=== PATIENT | female | born 1970 | race Caucasian/White ===

== ENCOUNTER 2016-06-20 22:20 | Emergency (ER) | payer OTHER ==
--- NOTE | 2016-06-20 22:46 | ED NURSING NOTES ---
Clinical Report - Nurses [facility] [address] [place] [address] 06/20/2016 22:21 [id number] TRI[facility] Triage time 22:27 Jun 20 2016. Acuity: LEVEL 4. Chief Complaint: Location of symptoms- (Starting right hip radiating down to ankle, she doesnt know what happened, this has been going on for 3 weeks). 22:33 06/20/16. SEPSIS SCREEN: Sepsis Screen. Negative (no infection suspected/documented). DEIDRA COMA SCORE: Deidra Coma Scale: 15- eyes open spontaneously (4); best verbal response- oriented x 4 (5); best motor response- obeys commands (6). --22:33 Mimi Rocha R.N. 22:27 06/20/16. BP: 145/86 (regular adult cuff) taken on the left arm. HR: 87. RR: 20. O2 saturation: 100% on room air. Temp: 98.1 F (oral). --22:33 Mimi Rocha R.N. Weight: 114.3 kg stated. Height/Length: 62 inches Per Patient. BMI: 46.1. --22:41 Mimi Rocha R.N. Medications Albuterol Sulfate HFA Inhalation, as needed. Cymbalta Oral (Capsule Delayed Release Particles 60 mg) 1 capsule, daily. Ibuprofen Oral (Tablet 800 mg) 1 tablet, as needed. LORazepam Oral 0.25 mg, PRN. --22:28 Mimi Rocha R.N. Methadone HCl Oral 15 mg, 2 x daily. Naproxen Oral, PRN. Soma Oral 350 mg, at bedtime. Vicodin 5mg, 2x a day. --22:28 Mimi Rocha R.N. Pantoprazole Sodium Oral (Packet 40 mg) 1 packet, daily. --22:29 Mimi Rocha R.N. Hydrocortisone External (Cream 2.5 %), daily. --22:30 Mimi Rocha R.N. Allergies Sulfa Antibiotics. Definite Moderate(hives, nausea) --22:28 Mimi Rocha R.N. Nystatin. --22:30 Mimi Rocha R.N. History Historian: patient. No injury occurred. This occurred (3 weeks ago). It is described as radiating to the right lower back, buttock, lower extremity, thigh, knee and calf. She has had trouble walking. 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 PAST MEDICAL HX: Last normal menstrual period- 1 year ago. SOCIAL HX: Current every day heavy tobacco smoker- less than 1 pack per day. Occasional alcohol use; consumes wine by the glass. No infectious disease exposure. ABUSE ASSESSMENT: No report of abuse. --22:33 Mimi Rocha R.N. PROBLEMS: Chronic Back Pain. Sciatica. Back Injury. Intervertebral Disc Disease. Back Pain. Contusion. Nasal Fracture. Headache. Asthma. Lower Extremity Pain. --22:30 Mimi Rocha R.N. ADDITIONAL SURGERIES: Carpal Tunnel Surgery. Cholecystectomy. . Left ankle. Tubal Ligation. --22:30 Mimi Rocha R.N. Right hand surgery. --22:30 Mimi Rocha R.N. Interventions ID band on patient. To treatment room. --22:33 Mimi Rocha R.N. PHYSICAL ASSESSMENT 22:34 06/20/16. EXTREMITIES: Extremity pulses are within normal limits. Extremities exhibit normal ROM. No lower extremity edema. Right hip: tenderness. Right thigh: tenderness. Right knee: tenderness. Right leg: tenderness. Right ankle: tenderness. SKIN: Skin intact. Skin is warm. --22:34 Mimi Rocha R.N. NURSING PROGRESS NOTES 22:34 06/20/16. The plan of care for this patient has been created. Monitoring of patient in place. Reassurance given. Two patient identifiers checked. Call light placed in reach. Side rails up x 1. Bed placed in lowest position. Brakes of bed on. Patient ready for evaluation- chart flagged and PA notified. --22:34 Mimi Rocha R.N. 22:42 06/20/16. ( Warm blanket placed under patients right side for comfort measures and warm blanket placed over patient.). --22:42 Mimi Rocha R.N. 22:58. The patient is calm and resting quietly. GENERAL / NEURO / PSYCH: Alert. Oriented X 4. RESPIRATORY: No respiratory distress. SKIN: Skin is warm and dry. --23:03 Ranjith Pittman R.N. DISPOSITION / DISCHARGE Departure time: 23:01. Condition at departure: stable. No learning barriers present. Discharge instructions provided and reviewed with the patient. Reviewed medication(s) side effects, precautions, dosing and course information. Prescription(s) given to the patient. Patient verbalized understanding. Written instructions provided in Finnish. The patient was discharged home and accompanied by family. She left the Emergency Department ambulatory and via private vehicle. Family member driving. FALL RISK ASSESSMENT: Fall risk assessment completed. No fall risk identified. --23:02 Ranjith Pittman R.N. Locked/Released at 06/20/2016 23:03 by Ranjith Pittman R.N.
--- NOTE | 2016-06-20 22:46 | ED CLINICAL REPORT ---
Clinical Report - Physicians/Mid Levels [facility] [address] [place] [address] 06/20/2016 22:21 Patient: KRYSTAL ARIAS Time Seen: 2230. Arrived- By private vehicle. Historian- patient. HISTORY OF PRESENT ILLNESS Chief Complaint: BACK PAIN. It is described as radiating to the left hip, thigh, calf and foot. Onset- 3 weeks. No bowel dysfunction. Additional history - patient with chronic pain. Worsening of her right lower extremity pain over the last 2-3 weeks, her recent primary care provider has left she is scheduled to follow up with partner of his in the next few weeks. Patient has a history of chronic back issues, previously was seen by floor care specialist. Reports history of chronic lower extremity pain, now with hip pain radiating to her posterior thigh into her toe at times with paresthesias. The symptoms worsen with any movement. Patient reports sitting or laying down as a position of comfort. Denies any new trauma. Denies any saddle anesthesia, urinary incontinence. Denies history of DVT. Denies shortness of breath. He denies recent prolonged immobilization or surgery. Denies hemoptysis. Patient denies syncope. REVIEW OF SYSTEMS No difficulty with urination, urinary frequency, nausea or vomiting. All systems otherwise negative, except as recorded above. PAST HISTORY Problems: Chronic Back Pain. Back Injury. Intervertebral Disc Disease. Hives. Back Pain. Contusion. Nasal Fracture. Headache. Asthma. Lower Extremity Pain. Tetanus Status. Immunizations. Additional Surgeries: Carpal Tunnel Surgery. Cholecystectomy. . Left ankle. Right hand surgery. Tubal Ligation. Medications: Hydrocortisone External (Cream 2.5 %), daily. Pantoprazole Sodium Oral (Packet 40 mg) 1 packet, daily. Methadone HCl Oral 15 mg, 2 x daily. Naproxen Oral, PRN. Soma Oral 350 mg, at bedtime. Vicodin 5mg, 2x a day. Albuterol Sulfate HFA Inhalation, as needed. Cymbalta Oral (Capsule Delayed Release Particles 60 mg) 1 capsule, daily. Ibuprofen Oral (Tablet 800 mg) 1 tablet, as needed. LORazepam Oral 0.25 mg, PRN. Allergies: Nystatin. Sulfa Antibiotics. Definite Moderate(hives, nausea). SOCIAL HISTORY Smoker- current status unknown. Alcohol use. ADDITIONAL NOTES The nursing notes have been reviewed. PHYSICAL EXAM Vital Signs: 06/20/2016 22:27 BP: 145/86. HR: 87. RR: 20. O2 saturation: 100%. Temp: 98.1 F. Appearance: Alert. No acute distress. Eyes: Pupils equal, round and reactive to light. ENT: Ears normal. CVS: Heart sounds normal. Pulses normal. Respiratory: No respiratory distress. Breath sounds normal. Abdomen: No visible injury. Soft. Bowel sounds normal. No abdominal tenderness or rebound tenderness. Back: Mild vertebral point tenderness over the lower thoracic and lumbar spine. Soft tissue tenderness. Skin: Skin warm. Normal skin color. Extremities: Extremities exhibit normal ROM. No lower extremity edema. Extremities nontender. No calf tenderness. Neuro: Oriented X 3. No motor deficit. Sensory deficit noted. Straight leg raising: positive on the right at 30 degrees. Reflex exam: right patellar 2+, left patellar 2+, right Achilles 2+ and left Achilles 2+. PROGRESS AND PROCEDURES Course of Care: There are no risks for spinal epidural abscess or hematoma as patient is without any risk factors such as IVDA or evidence of active infection, no midline tenderness to percussion. Hence I do not feel emergent imaging with an MRI is indicated. However I did discuss with the patient that if these symptoms develop, or if the pain does not resolve an MRI may need to be done outpatient, or in the ED if symptoms worsen acutely or new onset of the above mentioned symptoms develop. Chronic pain with mild acute worsening. Pt urged to f/u with spine center. No red flags. Ambulatory + DTR. Patient is stable. Physical exam findings are improved. Symptoms better. Patient/family counseled. Disposition: Discharged. CLINICAL IMPRESSION Acute right sided sciatica with low back pain and sensory loss. INSTRUCTIONS Apply ice. Limit lifting. No strenuous activity. Prescription Medications: Soma 350 mg: Take 1 orally every 6 hours as needed for muscle spasm. Dispense twenty (20). No refills. Substitution is permissible. Percocet 5 mg/325 mg: take 1 tablet orally every 6 hours as needed for pain. Dispense ten (10). No refill. Substitution is permissible. Follow-up: Follow up with your doctor in two days. (Electronically signed by Savannah Oneal P.A.-C 06/21/2016 13:32)
--- NOTE | 2016-06-20 22:46 | ED CLINICAL REPORT ---
Clinical Report - Physicians/Mid Levels [facility] [address] [place] [address] 06/20/2016 22:21 Patient: KRYSTAL ARIAS Time Seen: 2230. Arrived- By private vehicle. Historian- patient. HISTORY OF PRESENT ILLNESS Chief Complaint: BACK PAIN. It is described as radiating to the left hip, thigh, calf and foot. Onset- 3 weeks. No bowel dysfunction. Additional history - patient with chronic pain. Worsening of her right lower extremity pain over the last 2-3 weeks, her recent primary care provider has left she is scheduled to follow up with partner of his in the next few weeks. Patient has a history of chronic back issues, previously was seen by database management specialist. Reports history of chronic lower extremity pain, now with hip pain radiating to her posterior thigh into her toe at times with paresthesias. The symptoms worsen with any movement. Patient reports sitting or laying down as a position of comfort. Denies any new trauma. Denies any saddle anesthesia, urinary incontinence. Denies history of DVT. Denies shortness of breath. He denies recent prolonged immobilization or surgery. Denies hemoptysis. Patient denies syncope. REVIEW OF SYSTEMS No difficulty with urination, urinary frequency, nausea or vomiting. All systems otherwise negative, except as recorded above. PAST HISTORY Problems: Chronic Back Pain. Back Injury. Intervertebral Disc Disease. Hives. Back Pain. Contusion. Nasal Fracture. Headache. Asthma. Lower Extremity Pain. Tetanus Status. Immunizations. Additional Surgeries: Carpal Tunnel Surgery. Cholecystectomy. . Left ankle. Right hand surgery. Tubal Ligation. Medications: Hydrocortisone External (Cream 2.5 %), daily. Pantoprazole Sodium Oral (Packet 40 mg) 1 packet, daily. Methadone HCl Oral 15 mg, 2 x daily. Naproxen Oral, PRN. Soma Oral 350 mg, at bedtime. Vicodin 5mg, 2x a day. Albuterol Sulfate HFA Inhalation, as needed. Cymbalta Oral (Capsule Delayed Release Particles 60 mg) 1 capsule, daily. Ibuprofen Oral (Tablet 800 mg) 1 tablet, as needed. LORazepam Oral 0.25 mg, PRN. Allergies: Nystatin. Sulfa Antibiotics. Definite Moderate(hives, nausea). SOCIAL HISTORY Smoker- current status unknown. Alcohol use. ADDITIONAL NOTES The nursing notes have been reviewed. PHYSICAL EXAM Vital Signs: 06/20/2016 22:27 BP: 145/86. HR: 87. RR: 20. O2 saturation: 100%. Temp: 98.1 F. Appearance: Alert. No acute distress. Eyes: Pupils equal, round and reactive to light. ENT: Ears normal. CVS: Heart sounds normal. Pulses normal. Respiratory: No respiratory distress. Breath sounds normal. Abdomen: No visible injury. Soft. Bowel sounds normal. No abdominal tenderness or rebound tenderness. Back: Mild vertebral point tenderness over the lower thoracic and lumbar spine. Soft tissue tenderness. Skin: Skin warm. Normal skin color. Extremities: Extremities exhibit normal ROM. No lower extremity edema. Extremities nontender. No calf tenderness. Neuro: Oriented X 3. No motor deficit. Sensory deficit noted. Straight leg raising: positive on the right at 30 degrees. Reflex exam: right patellar 2+, left patellar 2+, right Achilles 2+ and left Achilles 2+. PROGRESS AND PROCEDURES Course of Care: There are no risks for spinal epidural abscess or hematoma as patient is without any risk factors such as IVDA or evidence of active infection, no midline tenderness to percussion. Hence I do not feel emergent imaging with an MRI is indicated. However I did discuss with the patient that if these symptoms develop, or if the pain does not resolve an MRI may need to be done outpatient, or in the ED if symptoms worsen acutely or new onset of the above mentioned symptoms develop. Chronic pain with mild acute worsening. Pt urged to f/u with spine center. No red flags. Ambulatory + DTR. Patient is stable. Physical exam findings are improved. Symptoms better. Patient/family counseled. Disposition: Discharged. CLINICAL IMPRESSION Acute right sided sciatica with low back pain and sensory loss. INSTRUCTIONS Apply ice. Limit lifting. No strenuous activity. Prescription Medications: Soma 350 mg: Take 1 orally every 6 hours as needed for muscle spasm. Dispense twenty (20). No refills. Substitution is permissible. Percocet 5 mg/325 mg: take 1 tablet orally every 6 hours as needed for pain. Dispense ten (10). No refill. Substitution is permissible. Follow-up: Follow up with your doctor in two days. (Electronically signed by Savannah Oneal P.A.-C 06/21/2016 13:32)
--- NOTE | 2016-06-20 22:46 | ED NURSING NOTES ---
Clinical Report - Nurses [facility] [address] [place] [address] 06/20/2016 22:21 [id number] Triage time 22:27 Jun 20 2016. Acuity: LEVEL 4. Chief Complaint: Location of symptoms- (Starting right hip radiating down to ankle, she doesnt know what happened, this has been going on for 3 weeks). 22:33 06/20/16. SEPSIS SCREEN: Sepsis Screen. Negative (no infection suspected/documented). DEIDRA COMA SCORE: Deidra Coma Scale: 15- eyes open spontaneously (4); best verbal response- oriented x 4 (5); best motor response- obeys commands (6). --22:33 Mimi Rocha R.N. 22:27 06/20/16. BP: 145/86 (regular adult cuff) taken on the left arm. HR: 87. RR: 20. O2 saturation: 100% on room air. Temp: 98.1 F (oral). --22:33 Mimi Rocha R.N. Weight: 114.3 kg stated. Height/Length: 62 inches Per Patient. BMI: 46.1. --22:41 Mimi Rocha R.N. Medications Albuterol Sulfate HFA Inhalation, as needed. Cymbalta Oral (Capsule Delayed Release Particles 60 mg) 1 capsule, daily. Ibuprofen Oral (Tablet 800 mg) 1 tablet, as needed. LORazepam Oral 0.25 mg, PRN. --22:28 Mimi Rocha R.N. Methadone HCl Oral 15 mg, 2 x daily. Naproxen Oral, PRN. Soma Oral 350 mg, at bedtime. Vicodin 5mg, 2x a day. --22:28 Mimi Rocha R.N. Pantoprazole Sodium Oral (Packet 40 mg) 1 packet, daily. --22:29 Mimi Rocha R.N. Hydrocortisone External (Cream 2.5 %), daily. --22:30 Mimi Rocha R.N. Allergies Sulfa Antibiotics. Definite Moderate(hives, nausea) --22:28 Mimi Rocha R.N. Nystatin. --22:30 Mimi Rocha R.N. History Historian: patient. No injury occurred. This occurred (3 weeks ago). It is described as radiating to the right lower back, buttock, lower extremity, thigh, knee and calf. She has had trouble walking. 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 PAST MEDICAL HX: Last normal menstrual period- 1 year ago. SOCIAL HX: Current every day heavy tobacco smoker- less than 1 pack per day. Occasional alcohol use; consumes wine by the glass. No infectious disease exposure. ABUSE ASSESSMENT: No report of abuse. --22:33 Mimi Rocha R.N. PROBLEMS: Chronic Back Pain. Sciatica. Back Injury. Intervertebral Disc Disease. Back Pain. Contusion. Nasal Fracture. Headache. Asthma. Lower Extremity Pain. --22:30 Mimi Rocha R.N. ADDITIONAL SURGERIES: Carpal Tunnel Surgery. Cholecystectomy. . Left ankle. Tubal Ligation. --22:30 Mimi Rocha R.N. Right hand surgery. --22:30 Mimi Rocha R.N. Interventions ID band on patient. To treatment room. --22:33 Mimi Rocha R.N. PHYSICAL ASSESSMENT 22:34 06/20/16. EXTREMITIES: Extremity pulses are within normal limits. Extremities exhibit normal ROM. No lower extremity edema. Right hip: tenderness. Right thigh: tenderness. Right knee: tenderness. Right leg: tenderness. Right ankle: tenderness. SKIN: Skin intact. Skin is warm. --22:34 Mimi Rocha R.N. NURSING PROGRESS NOTES 22:34 06/20/16. The plan of care for this patient has been created. Monitoring of patient in place. Reassurance given. Two patient identifiers checked. Call light placed in reach. Side rails up x 1. Bed placed in lowest position. Brakes of bed on. Patient ready for evaluation- chart flagged and PA notified. --22:34 Mimi Rocha R.N. 22:42 06/20/16. ( Warm blanket placed under patients right side for comfort measures and warm blanket placed over patient.). --22:42 Mimi Rocha R.N. 22:58. The patient is calm and resting quietly. GENERAL / NEURO / PSYCH: Alert. Oriented X 4. RESPIRATORY: No respiratory distress. SKIN: Skin is warm and dry. --23:03 Ranjith Pittman R.N. DISPOSITION / DISCHARGE Departure time: 23:01. Condition at departure: stable. No learning barriers present. Discharge instructions provided and reviewed with the patient. Reviewed medication(s) side effects, precautions, dosing and course information. Prescription(s) given to the patient. Patient verbalized understanding. Written instructions provided in Spanish. The patient was discharged home and accompanied by family. She left the Emergency Department ambulatory and via private vehicle. Family member driving. FALL RISK ASSESSMENT: Fall risk assessment completed. No fall risk identified. --23:02 Ranjith Pittman R.N. Locked/Released at 06/20/2016 23:03 by Ranjith Pittman R.N.
--- NOTE | 2016-06-21 13:33 | ED DISCHARGE INSTRUCTIONS ---
Patient: KRYSTAL ARIAS General Instructions [facility] VisitID: [id number] [place] [address] 45y, F Registration Date/Time: 06/20/2016 Acute right sided sciatica with low back pain and sensory loss. INSTRUCTIONS Apply ice. Limit lifting. No strenuous activity. Prescription Medications: Soma 350 mg: Take 1 orally every 6 hours as needed for muscle spasm. Dispense twenty (20). No refills. Substitution is permissible. Percocet 5 mg/325 mg: take 1 tablet orally every 6 hours as needed for pain. Dispense ten (10). No refill. Substitution is permissible. Follow-up: Follow up with your doctor in two days. ADDITIONAL INFORMATION Sciatica Sciatica ("Lumbar Radiculopathy") causes a pain that spreads from the lower back down into the buttock, hip and leg. Sometimes leg pain can occur without any back pain. Sciatica is due to irritation or pressure on a spinal nerve as it comes out of the spinal canal. This is most often due to a bulge or rupture of a nearby spinal disk (the cartilage cushion between each spinal bone), which presses on a nearby nerve. Other causes include spinal stenosis (narrowing of the spinal canal) and spasm of the pyriform muscle (a muscle in the buttocks that the sciatic nerve passes through). Sciatica may begin after a sudden twisting/bending force (such as in a car accident), or sometimes after a simple awkward movement. In either case, muscle spasm is commonly present and contributes to the pain. The diagnosis of sciatica is made from the symptoms and physical exam. Unless you had a physical injury (such as a car accident or fall), X-rays are usually not ordered for the initial evaluation of sciatica because the nerves and disks cannot be seen on an x-ray. If signs of a compressed nerve are present (for example, loss of tendon reflex or strength in the leg), an MRI (magnetic resonance imaging) scan will need to be scheduled as an outpatient. Most sciatica (80-90%) gets better with medicine, exercise, physical therapy. If symptoms continue after at least three months of medical treatment, surgery may be considered. Home Care: You may need to stay in bed the first few days. But, as soon as possible, begin sitting or walking to avoid problems with prolonged bed rest. When in bed, try to find a position of comfort. A firm mattress is best. Try lying flat on your back with pillows under your knees. You can also try lying on your side with your knees bent up towards your chest and a pillow between your knees. Avoid prolonged sitting. This puts more stress on the lower back than standing or walking. Some persons find relief with heat (hot shower, hot bath or heating pad) and massage, while others prefer cold packs (crushed or cubed ice in a plastic bag, wrapped in a towel). Try both and use the method that feels best for 20 minutes several times a day. You may use acetaminophen (Tylenol) or ibuprofen (Motrin, Advil) to control pain, unless another pain medicine was prescribed. [ NOTE: If you have chronic liver or kidney disease or ever had a stomach ulcer or GI bleeding, talk with your doctor before using these medicines.] Be aware of safe lifting methods and do not lift anything over 15 pounds until all the pain is gone. Follow Up with your doctor or this facility if your symptoms do not start to improve after one week. Physical therapy or further testing may be needed. [NOTE: If X-rays were taken, they will be reviewed by a radiologist. You will be notified of any new findings that may affect your care.] Get Prompt Medical Attention if any of the following occur: Pain becomes worse, not controlled by the prescribed medicine Weakness or numbness in one or both legs Numbness in the groin, genital area Loss of bowel or bladder control Oxycodone Hydrochloride, Acetaminophen Oral tablet What is this medicine? ACETAMINOPHEN; OXYCODONE (a set a SIMONA michele fen; ox i KOE done) is a pain reliever. It is used to treat mild to moderate pain. How should I use this medicine? Take this medicine by mouth with a full glass of water. Follow the directions on the prescription label. Take your medicine at regular intervals. Do not take your medicine more often than directed. Talk to your dance hall host/hostess regarding the use of this medicine in children. Special care may be needed. Patients over 65 years old may have a stronger reaction and need a smaller dose. What side effects may I notice from receiving this medicine? Side effects that you should report to your doctor or health healthcare corporate account director as soon as possible: allergic reactions like skin rash, itching or hives, swelling of the face, lips, or tongue breathing difficulties, wheezing confusion light headedness or fainting spells severe stomach pain yellowing of the skin or the whites of the eyes Side effects that usually do not require medical attention (report to your doctor or health healthcare corporate account director if they continue or are bothersome): dizziness drowsiness nausea vomiting What may interact with this medicine? alcohol antihistamines barbiturates like amobarbital, butalbital, butabarbital, methohexital, pentobarbital, phenobarbital, thiopental, and secobarbital benztropine drugs for bladder problems like solifenacin, trospium, oxybutynin, tolterodine, hyoscyamine, and methscopolamine drugs for breathing problems like ipratropium and tiotropium drugs for certain stomach or intestine problems like propantheline, homatropine methylbromide, glycopyrrolate, atropine, belladonna, and dicyclomine general anesthetics like etomidate, ketamine, nitrous oxide, propofol, desflurane, enflurane, halothane, isoflurane, and sevoflurane medicines for depression, anxiety, or psychotic disturbances medicines for sleep muscle relaxants naltrexone narcotic medicines (opiates) for pain phenothiazines like perphenazine, thioridazine, chlorpromazine, mesoridazine, fluphenazine, prochlorperazine, promazine, and trifluoperazine scopolamine tramadol trihexyphenidyl What if I miss a dose? If you miss a dose, take it as soon as you can. If it is almost time for your next dose, take only that dose. Do not take double or extra doses. Where should I keep my medicine? Keep out of the reach of children. This medicine can be abused. Keep your medicine in a safe place to protect it from theft. Do not share this medicine with anyone. Selling or giving away this medicine is dangerous and against the law. Store at room temperature between 20 and 25 degrees C (68 and 77 degrees F). Keep container tightly closed. Protect from light. This medicine may cause accidental overdose and if it is taken by other adults, children, or pets. Flush any unused medicine down the toilet to reduce the chance of harm. Do not use the medicine after the expiration date. What should I tell my health care provider before I take this medicine? They need to know if you have any of these conditions: brain tumor Crohn's disease, inflammatory bowel disease, or ulcerative colitis drink more than 3 alcohol containing drinks per day drug abuse or addiction head injury heart or circulation problems kidney disease or problems going to the bathroom liver disease lung disease, asthma, or breathing problems an unusual or allergic reaction to acetaminophen, oxycodone, other opioid analgesics, other medicines, foods, dyes, or preservatives or trying to get breast-feeding What should I watch for while using this medicine? Tell your doctor or health healthcare corporate account director if your pain does not go away, if it gets worse, or if you have new or a different type of pain. You may develop tolerance to the medicine. Tolerance means that you will need a higher dose of the medication for pain relief. Tolerance is normal and is expected if you take this medicine for a long time. Do not suddenly stop taking your medicine because you may develop a severe reaction. Your body becomes used to the medicine. This does NOT mean you are addicted. Addiction is a behavior related to getting and using a drug for a non-medical reason. If you have pain, you have a medical reason to take pain medicine. Your doctor will tell you how much medicine to take. If your doctor wants you to stop the medicine, the dose will be slowly lowered over time to avoid any side effects. You may get drowsy or dizzy. Do not drive, use machinery, or do anything that needs mental alertness until you know how this medicine affects you. Do not stand or sit up quickly, especially if you are an older patient. This reduces the risk of dizzy or fainting spells. Alcohol may interfere with the effect of this medicine. Avoid alcoholic drinks. There are different types of narcotic medicines (opiates) for pain. If you take more than one type at the same time, you may have more side effects. Give your health care provider a list of all medicines you use. Your doctor will tell you how much medicine to take. Do not take more medicine than directed. Call emergency for help if you have problems breathing. The medicine will cause constipation. Try to have a bowel movement at least every 2 to 3 days. If you do not have a bowel movement for 3 days, call your doctor or health healthcare corporate account director. Do not take Tylenol (acetaminophen) or medicines that have acetaminophen with this medicine. Too much acetaminophen can be very dangerous. Many nonprescription medicines contain acetaminophen. Always read the labels carefully to avoid taking more acetaminophen. You have been given the following additional information: Back Pain W/ Sciatica Oxycodone Hydrochloride, Acetaminophen Oral tablet Limit lifting. No strenuous activity. (Electronically signed by Savannah Oneal P.A.-C 06/21/2016 13:32)
--- NOTE | 2016-06-21 13:33 | ED MED RECONCILIATION SUMMARY ---
Patient: KRYSTAL ARIAS Medication Reconciliation Report [facility] VisitID: [id number] [place] [address] 45y, F Registration Date/Time: 06/20/2016 Weight: 114.3 kg Height/Length: 62 in. BMI: 46.1 ALLERGIES: Nystatin, Sulfa Antibiotics The patient's Home Medications are listed below: THE FOLLOWING MEDICATIONS NEED TO BE RECONCILED: Albuterol Sulfate HFA Inhalation Cymbalta Oral (60 mg) 1 capsule, daily Hydrocortisone External (2.5 %), daily Ibuprofen Oral (800 mg) 1 tablet LORazepam Oral 0.25 mg, PRN Methadone HCl Oral 15 mg, 2 x daily Naproxen Oral, PRN Pantoprazole Sodium Oral (40 mg) 1 packet, daily Soma Oral 350 mg, at bedtime Vicodin 5mg, 2x a day The source(s) of the original Home Medication information: Not obtained. The following Medications were given to the patient in the Emergency Department: None. The following Medications were prescribed to the patient: Soma 350 mg: Take 1 orally every 6 hours as needed for muscle spasm. Dispense twenty (20). No refills. Substitution is permissible. -- Savannah Oneal, P.A.-Nae Percocet 5 mg/325 mg: take 1 tablet orally every 6 hours as needed for pain. Dispense ten (10). No refill. Substitution is permissible. -- Savannah Oneal, P.A.-C
--- NOTE | 2016-06-21 13:33 | ED MAR SUMMARY ---
..... Medication Administration Record [facility] [address] [place], [place] [id number] Patient: KRYSTAL ARIAS Visit ID: [id number] 45y, F Weight: 114.3 kg Height/Length: 62 in BMI: 46.1 ALLERGIES: Nystatin, Sulfa Antibiotics
--- NOTE | 2016-06-21 13:33 | ED MAR SUMMARY ---
..... Medication Administration Record [facility] [address] [place] [place], [place] [id number] Patient: KRYSTAL ARIAS Visit ID: [id number] 45y, F Weight: 114.3 kg Height/Length: 62 in BMI: 46.1 ALLERGIES: Nystatin, Sulfa Antibiotics
--- NOTE | 2016-06-21 13:33 | ED MED RECONCILIATION SUMMARY ---
Patient: KRYSTAL ARIAS Medication Reconciliation Report [facility] VisitID: [id number] [place] [address] 45y, F Registration Date/Time: 06/20/2016 Weight: 114.3 kg Height/Length: 62 in. BMI: 46.1 ALLERGIES: Nystatin, Sulfa Antibiotics The patient's Home Medications are listed below: THE FOLLOWING MEDICATIONS NEED TO BE RECONCILED: Albuterol Sulfate HFA Inhalation Cymbalta Oral (60 mg) 1 capsule, daily Hydrocortisone External (2.5 %), daily Ibuprofen Oral (800 mg) 1 tablet LORazepam Oral 0.25 mg, PRN Methadone HCl Oral 15 mg, 2 x daily Naproxen Oral, PRN Pantoprazole Sodium Oral (40 mg) 1 packet, daily Soma Oral 350 mg, at bedtime Vicodin 5mg, 2x a day The source(s) of the original Home Medication information: Not obtained. The following Medications were given to the patient in the Emergency Department: None. The following Medications were prescribed to the patient: Soma 350 mg: Take 1 orally every 6 hours as needed for muscle spasm. Dispense twenty (20). No refills. Substitution is permissible. -- Savannah Oneal, P.A.-Nae Percocet 5 mg/325 mg: take 1 tablet orally every 6 hours as needed for pain. Dispense ten (10). No refill. Substitution is permissible. -- Savannah Oneal, P.A.-C
== END 2016-06-20 23:01 | disposition home or self-care (01) ==
LOC: ED SRH 22:20
DX: M54.41 Lumbago with sciatica, right side (principal); R29.818 Other symptoms and signs involving the nervous system; J45.909 Unspecified asthma, uncomplicated; Z79.51 Long term (current) use of inhaled steroids; Z79.899 Other long term (current) drug therapy; Z79.891 Long term (current) use of opiate analgesic; Z88.8 Allergy status to other drugs, medicaments and biological substances; Z88.2 Allergy status to sulfonamides